=== PATIENT | male | born 1980 | race Caucasian/White ===

== ENCOUNTER 2018-11-18 08:58 | Emergency (ER) | payer SELFPAY ==
[2018-11-18] MEDS ORDERED: Ondansetron INJ* 2 MG/ML VIAL IV ONE (09:16)
[2018-11-18] MEDS ORDERED: Morphine 4 MG/ML VIAL (1 ml) 4 MG/ML VIAL IV ONE (09:16)
[2018-11-18] MEDS ORDERED: Ketorolac INJ* 30 MG/ML 1 ML VIAL IV PUSH ONE (09:16)
[2018-11-18] MEDS ORDERED: NS 0.9% 1000 ML** 1,000 ML IV ONE (09:18)
--- NOTE | 2018-11-18 09:18 | ED ---
Abdominal Pain/Male - HPI Summary HPI Summary: Patient is a 38-year-old male who presents department for severe right groin and testicular pain. Patient states he had some mild lower abdominal pain last night and this morning pain was severe. He states located to his right groin and radiates to his testicles. He notes his urine has been dark. Denies fever , chills. Episode of vomiting. Patient denies past medical history. Symptoms are moderate in severity. No current modifying factors. - History of Current Complaint Chief Complaint: EDAbdPain Stated Complaint: LOWER RIGHT ABD PAIN Time Seen by Provider: 11/18/18 09:12 Hx Obtained From: Patient Pain Intensity: 8 - Allergies/Home Medications Allergies/Adverse Reactions: Allergies Allergy/AdvReac Type Severity Reaction Status Date / Time amoxicillin Allergy Unknown Verified 11/18/18 09:01 Reaction Details Penicillins Allergy Unknown Verified 11/18/18 09:01 Reaction Details PMH/Surg Hx/FS Hx/Imm Hx Previously Healthy: Yes Infectious Disease History: No Infectious Disease History: Denies: Traveled Outside the [place] in Last 30 Days - Family History Known Family History: Positive: Non-Contributory - Social History Occupation: Employed Full-time Lives: With Family Alcohol Use: Rare Substance Use Type: Reports: Marijuana Smoking Status (MU): Never Smoked Tobacco Review of Systems Constitutional: Negative Negative: Fever, Chills Cardiovascular: Negative Respiratory: Negative Positive: Abdominal Pain, Vomiting, Nausea. Negative: Diarrhea Positive: hematuria Neurological: Negative All Other Systems Reviewed And Are Negative: Yes Physical Exam Triage Information Reviewed: Yes Vital Signs On Initial Exam: Initial Vitals Temp Pulse Resp BP Pulse Ox 97.3 F 72 18 124/80 99 11/18/18 08:59 11/18/18 08:59 11/18/18 08:59 11/18/18 08:59 11/18/18 08:59 Vital Signs Reviewed: Yes Appearance: Positive: Pain Distress - Pt. on all fours on bed. Appears in pain but nontoxic. SO present. Skin: Positive: Warm, Dry Head/Face: Positive: Normal Head/Face Inspection Eyes: Positive: Normal, EOMI Neck: Positive: Supple Abdomen Description: Positive: Nontender, Soft, CVA Tenderness (R) Musculoskeletal: Positive: Normal, Strength/ROM Intact Neurological: Positive: Normal, CN Intact II-III Diagnostics - Vital Signs Vital Signs Temp Pulse Resp BP Pulse Ox 08/11/19 08:59 97.3 F 72 18 124/80 99 - Laboratory Result Diagrams: 11/18/18 10:03 11/18/18 10:03 Lab Statement: Any lab studies that have been ordered have been reviewed, and results considered in the medical decision making process. Abdominal Pain Male Course/Dx - Course Course Of Treatment: Patient presenting with severe right groin and testicular pain. He is afebrile. Testicular ultrasound ordered to rule out torsion. Suspect likely urolithiasis. Patient was given IV fluids, Toradol, morphine and Zofran. U/S per radiology: IMPRESSION: #. No evidence for testicular torsion, epididymoorchitis, or presence of an. intratesticular lesion. Negative exam. CT per radiology: IMPRESSION: #. Mild RIGHT hydronephrosis is traced to a 0.6 cm ureteropelvic junction stone. Labs unremarkable. Urinalysis shows RBCs without signs of infection. On reexamination patient is resting comfortably and pain is 0 out of 10. Results were discussed. We'll discharge home with prescriptions for Percocet, Zofran and Flomax. To strain urine. To increase fluids. Will follow up with urology if pain persists within 1 week. To return to the ER for uncontrolled pain, vomiting, fever or if concerned. Patient and understand and agree with plan. - Diagnoses Differential Diagnosis/HQI/PQRI: Appendicitis, Epididymitis, Renal Colic, Testicular Torsion, Urinary Tract Infection Provider Diagnoses: Urolithiasis Discharge - Sign-Out/Discharge Documenting (check all that apply): Patient Departure Patient Received Moderate/Deep Sedation with Procedure: No - Discharge Plan Condition: Improved Disposition: HOME Prescriptions: Ondansetron ODT TAB* [Zofran 4 MG Odt TAB*] 4 mg PO Q6H PRN #12 tab.odt PRN Reason: Nausea oxyCODONE/Acetamin 5/325 MG* [Percocet 5/325 TAB*] 1 tab PO Q6H PRN #20 tab MDD 4 PRN Reason: Pain - Moderate Tamsulosin CAP* [Flomax CAP*] 0.4 mg PO DAILY #5 cap Patient Education Materials: Kidney Stones (ED) Referrals: Wilber LANDA,Dante Escudero [Primary Care Provider] - Keyshawn Roberts MD [Medical Doctor] - Additional Instructions: Follow up with urology if pain is persisting Medication as directed Can rotate ibuprofen in between percocet as directed Increase fluids Strain urine Return to ER for uncontrollable pain, vomiting, fever, or if concerned - Billing Disposition and Condition Condition: IMPROVED Disposition: Home
[2018-11-18 10:13] LABS: ABS Eosinophils 0.1 10^3/ul (0-0.6); ABS Lymphocytes 0.7 10^3/ul (1.0-4.8); ABS Monocytes 0.3 10^3/ul (0-0.8); ABS Neutrophils 3.5 10^3/ul (1.5-7.7); Eosinophil % 1.5 %; Hematocrit 40 % (42-52); Hemoglobin 13.6 g/dL (14.0-18.0); Lymphocyte % 15.3 %; Mean Corpuscular HGB Conc 35 g/dL (31-36); Mean Corpuscular Hemoglobin 29 pg (27-31); Mean Corpuscular Volume 85 fL (80-94); Mean Platelet Volume 7.7 fL (7.4-10.4); Nucleated Red Blood Cells % 0.1; Platelet Count 174 10^3/uL (150-450); Red Blood Count 4.64 10^6 /uL (4.18-5.48); Red Cell Distribution Width 13 % (10-15); White Blood Count 4.7 10^3/uL (3.5-10.8)
[2018-11-18 10:30] LABS: Albumin/Globulin Ratio 1.7 (1-3); BUN/Creatinine Ratio 14.4 (8-20); Calcium 8.6 mg/dL (8.6-10.3); EGFR African American 104.3 (>60); EGFR Non-African American 86.2 (>60); Globulin 2.3 g/dL (2-4); Potassium 4.3 mmol/L (3.5-5.0); Total Bilirubin 0.5 mg/dL (0.2-1.0); Total Protein 6.3 g/dL (6.4-8.9)
[2018-11-18 11:34] LABS: Urine Appearance Clear; Urine Bacteria Absent (Absent); Urine Bilirubin Negative (Negative); Urine Blood 2+ (Negative); Urine Color Yellow; Urine Glucose Negative (Negative); Urine Ketones Negative (Negative); Urine Nitrite Negative (Negative); Urine Protein Negative (Negative); Urine Red Blood Cell 3+(>10/hpf) (Absent); Urine Specific Gravity 1.023 (1.010-1.030); Urine Urobilinogen Negative (Negative); Urine White Blood Cell Trace(0-5/hpf) (Absent)
[2018-11-18 12:35] VITALS: BP 122/72
== END 2018-11-18 12:33 | disposition home or self-care (01) ==
LOC: ED 08:58
DX: N13.2 Hydronephrosis with renal and ureteral calculous obstruction (principal); R11.10 Vomiting, unspecified; Z88.0 Allergy status to penicillin
CPT/HCPCS: 36415; 74176; 76870; 80053; 81003; 81015; 85025; 87086; 96361; 96374; 96375; 99282; J1885; J2270; J2405